=== PATIENT | female | born 1960 | race Caucasian/White ===

== ENCOUNTER → 2017-01-05 | Outpatient (CLI) | payer BC ==
[~2017-01-05] MED LIST: ACIPHEX20 MG PO; ASPIRIN81 M1 PO; ASPRIN/BUTALBIT1 TAB PO; ATIVAN0.5 MG PO; ATIVAN1 MG PO; DIOVAN HCT 12.51 TA6 PO; FLEXERIL10 MG PO; MOTRIN600 MG PO; MOTRIN800 MG PO; PREDNICOT20 MG PO
[2017-01-05 09:23] LABS: BASO % 0.6 % (0.0-1.0); EOS # 0.1 10*3/uL (0.0-0.4); EOS % 2.1 % (1.0-4.0); HEMATOCRIT 41.6 % (37.0-47.0); HEMOGLOBIN 13.8 g/dl (12.0-16.0); LYMPH # 1.8 10*3/uL (1.3-4.4); LYMPH % 28.7 % (27.0-41.0); MEAN CELL VOLUME 93.9 fl (81.0-99.0); MEAN CORPUSCULAR HGB 31.2 pg (27.0-31.0); MEAN CORPUSCULAR HGB CONC 33.2 g/dl (33.0-37.0); MEAN PLATELET VOLUME 10.2 fl (9.6-12.3); MONO # 0.5 10*3/uL (0.1-1.0); MONO % 7.3 % (3.0-9.0); NEUT # 3.8 10*3/uL (2.3-7.9); NEUT % 60.8 % (47.0-73.0); PLATELET COUNT AUTOMATED 215 10*3/uL (130-400); RED BLOOD COUNT 4.43 10*6/uL (4.10-5.10); RED CELL DISTRI WIDTH 12.9 % (0-14.5); WHITE BLOOD COUNT 6.3 10*3/uL (4.8-10.8)
[2017-01-05 09:45] LABS: ALBUMIN 3.8 gm/dl (3.1-4.5); ALKALINE PHOSPHATASE 67 U/L (45-117); BUN 17 mg/dl (7-24); CHLORIDE 105 mmol/L (98-107); CHOLESTEROL 211 mg/dL (<200); CREATININE 0.75 mg/dL (0.55-1.02); HDL CHOLESTEROL 42 mg/dl (40-60); LDL CHOLESTEROL 144 mg/dL (9-159); SGOT/AST 14 IU/L (3-35); SGPT/ALT 21 U/L (12-78); SODIUM 142 mmol/L (136-145); TOTAL PROTEIN 7.8 gm/dL (6.4-8.2); TRIGLYCERIDES 125 mg/dl (<150); VLDL CHOLESTEROL 25 mg/dL (6-40)
[2017-01-05 09:52] LABS: THYROID STIM HORMONE (HS) 0.821 uIU/ml (0.358-4.75)
[2017-01-05 10:39] LABS: VITAMIN D, 25-HYDROXY 30.6 ng/mL (30-100)
== END | disposition home or self-care (01) ==
LOC: LAB 08:51
PROVIDERS: Internal Medicine
DX: I10 Essential (primary) hypertension (principal); K22.70 Barrett's esophagus without dysplasia; E55.9 Vitamin D deficiency, unspecified

== ENCOUNTER → 2017-02-05 | Outpatient (CLI) | payer BC | END | disposition home or self-care (01) | LOC: LAB 03:55 → US 03:55 → CARD 09:30 → US 10:30 | DX: I65.23 Occlusion and stenosis of bilateral carotid arteries (principal); E11.9 Type 2 diabetes mellitus without complications ==

== ENCOUNTER → 2017-05-09 | Outpatient (CLI) | payer BC | END | disposition home or self-care (01) | LOC: MAMMO 05-02 10:20 → RAD 05-02 11:00 → MAMMO 00:22 | DX: Z12.31 Encounter for screening mammogram for malignant neoplasm of breast (principal); E55.9 Vitamin D deficiency, unspecified; Z78.0 Asymptomatic menopausal state ==

== ENCOUNTER → 2017-08-17 | Day surgery (SDC) | payer BC ==
[~2017-08-17] VITALS: Ht 170.1 cm; Wt 99.3 kg
[~2017-08-17] MED LIST changes: +SIMVASTATIN5 MG PO; +VICODIN 5-3001 EACH PO
--- NOTE | ~2017-08-17 | PROC NOTE ---
[place], [place] PROCEDURE NOTE NAME: SCOT SCHROEDER [facility] #: [id number] UNIT #: [id number] ROOM: DOCTOR: CONOR SULTANA MD BIRTHDATE: [birth year] DOS: PROCEDURES: 1. Esophagogastroduodenoscopy and biopsy. 2. Colonoscopy. INDICATIONS: GERD, history of Cheema's esophagus, and rectal bleeding. An informed consent was obtained from the patient after indication of procedures, alternatives, and potential complications were explained to her. PROCEDURE MEDICATIONS: Sedation was administered by Anesthesiology Department. SCOPE USED: For upper endoscopy, Olympus diagnostic adult upper endoscope GIF-180, depth of insertion was to the descending duodenum. For the colonoscopy, the scope used was Olympus pediatric colonoscope variable stiffness GIF-180, depth of insertion was to the cecum, which was identified by the usual landmarks, the appendiceal orifice, ileocecal valve and triangular fold, in addition to transillumination in the right lower quadrant. FINDINGS: After adequate sedation, the patient was placed in left lateral decubitus position. Upper endoscopy was performed first and the scope was introduced under direct visualization through the upper esophageal sphincter into the esophagus. Esophageal mucosa showed irregular Z line borders extending from 34-37 cm from incisors suggestive of short segment Cheema's esophagus. Biopsies were obtained. Stomach was then intubated. Gastric mucosa inspected, no abnormalities were seen. No discrete ulcers or active bleeding. Retroflexed views in the fundus showed a grade 2 hiatal hernia. The pylorus was intubated easily. The duodenal bulb and descending duodenum were within normal range. Scope was then withdrawn after the stomach was decompressed. We then proceeded with colonoscopy. Rectal examination showed diminished sphincter tone and no external hemorrhoids. Scope was introduced into the rectum, then advanced to the cecum with some difficulty due to looping left colon. The prep was adequate. The colon mucosa appeared normal with no evidence of polyps, diverticular ulcerations. Retroflexed views in the rectum showed grade 2 internal hemorrhoids. The scope was then withdrawn after the rectum was decompressed. The patient tolerated the procedures well. IMPRESSION: 1. Small hiatal hernia. 2. Irregular Z line borders suggestive of short segment Cheema's esophagus, biopsies pending. 3. Internal hemorrhoids. 4. Normal colon mucosa, otherwise, no polyp seen. PLAN: There is no need for further GI workup at this time. Repeat screening colonoscopy is advised in 10 years. We will review the histopathology reports and treat the patient accordingly. Office followup will be scheduled in 2-3 weeks. [place], [place] PROCEDURE NOTE NAME: SCOT SCHROEDER UNIT #: [id number] ROOM: DOCTOR: CONOR SULTANA MD BIRTHDATE: [birth year] CONOR SULTANA MD CM:PROCNOTE:PROCEDURE NOTE [id number] FELIBERTO SULTANA MD
[2017-08-17 06:35] VITALS: BP 132/78
[2017-08-17 08:22] VITALS: BP 117/71
[2017-08-17 08:30] VITALS: BP 124/75
[2017-08-17 08:49] VITALS: BP 135/75
== END | disposition home or self-care (01) ==
LOC: SDC 07-24 12:30
DX: K20.8 Other esophagitis (principal); K44.9 Diaphragmatic hernia without obstruction or gangrene; K64.8 Other hemorrhoids; I10 Essential (primary) hypertension; K21.0 Gastro-esophageal reflux disease with esophagitis; E78.5 Hyperlipidemia, unspecified; M85.80 Other specified disorders of bone density and structure, unspecified site; Z98.890 Other specified postprocedural states; Z95.5 Presence of coronary angioplasty implant and graft; Z82.49 Family history of ischemic heart disease and other diseases of the circulatory system; Z82.3 Family history of stroke; Z79.899 Other long term (current) drug therapy; Z90.49 Acquired absence of other specified parts of digestive tract; Z79.82 Long term (current) use of aspirin

== ENCOUNTER → 2018-04-09 | Outpatient (CLI) | payer BC ==
[2018-04-09 10:07] LABS: BASO # 0.1 10*3/uL (0.0-0.1); BASO % 1.2 % (0.0-1.0); EOS # 0.1 10*3/uL (0.0-0.4); EOS % 2.8 % (1.0-4.0); HEMATOCRIT 43.8 % (37.0-47.0); HEMOGLOBIN 14.6 g/dl (12.0-16.0); LYMPH # 1.6 10*3/uL (1.3-4.4); LYMPH % 36.7 % (27.0-41.0); MEAN CELL VOLUME 92.4 fl (81.0-99.0); MEAN CORPUSCULAR HGB 30.8 pg (27.0-31.0); MEAN CORPUSCULAR HGB CONC 33.3 g/dl (33.0-37.0); MEAN PLATELET VOLUME 10.2 fl (9.6-12.3); MONO # 0.4 10*3/uL (0.1-1.0); MONO % 9.3 % (3.0-9.0); NEUT # 2.1 10*3/uL (2.3-7.9); NEUT % 49.8 % (47.0-73.0); PLATELET COUNT AUTOMATED 219 10*3/uL (130-400); RED BLOOD COUNT 4.74 10*6/uL (4.10-5.10); RED CELL DISTRI WIDTH 12.6 % (0-14.5); WHITE BLOOD COUNT 4.3 10*3/uL (4.8-10.8)
[2018-04-09 10:45] LABS: BUN 17 mg/dl (7-24); CHLORIDE 105 mmol/L (98-107); CHOLESTEROL 183 mg/dL (<200); CREATININE 0.76 mg/dL (0.55-1.02); POTASSIUM 3.9 mmol/L (3.5-5.1); SGOT/AST 20 IU/L (3-35); SGPT/ALT 27 U/L (12-78); SODIUM 142 mmol/L (136-145); TRIGLYCERIDES 125 mg/dl (<150); VLDL CHOLESTEROL 25 mg/dL (6-40)
[2018-04-09 10:54] LABS: ALKALINE PHOSPHATASE 70 U/L (45-117); CPK 140 U/L (26-192); FREE T4 1.07 ng/dl (0.76-1.46); HDL CHOLESTEROL 37 mg/dl (40-60); LDL CHOLESTEROL 121 mg/dL (9-159); TOTAL PROTEIN 7.8 gm/dL (6.4-8.2)
[2018-04-09 11:33] LABS: VITAMIN D, 25-HYDROXY 22.8 ng/mL (30-100)
== END | disposition home or self-care (01) ==
LOC: LAB 09:54
PROVIDERS: Internal Medicine
DX: E55.9 Vitamin D deficiency, unspecified (principal); D51.0 Vitamin B12 deficiency anemia due to intrinsic factor deficiency; E03.9 Hypothyroidism, unspecified; E78.2 Mixed hyperlipidemia

== ENCOUNTER → 2018-04-26 | Outpatient (CLI) | payer BC ==
[~2018-04-26] MED LIST changes: +Hydralazine Hyd25 MG PO; +LOPRESSOR50 M1 PO
== END | disposition home or self-care (01) ==
LOC: LAB 00:18
DX: R73.9 Hyperglycemia, unspecified (principal)

== ENCOUNTER → 2018-07-19 | Outpatient (CLI) | payer BC ==
--- NOTE | ~2018-07-19 | ST ---
[place], [place] EXERCISE STRESS TEST REPORT NAME: SCOT SCHROEDER [facility] #: [id number] UNIT #: [id number] ROOM: DOCTOR: AUDREY CASAREZ MD BIRTHDATE: [birth year] DOS: 07/19/2018 EXERCISE STRESS TEST REASON FOR TESTING: Atypical/non-anginal chest pain. Baseline EKG, normal sinus rhythm, septal LA, age undetermined, abnormal EKG. After informed consent was obtained, the patient's stress test was performed using Rafal protocol. EKG portion of the test was normal. No significant arrhythmias were noted. No chest pain was noted. Normal heart rate response to exercise and recovery. Above average functional capacity. Low risk exercise stress test. Hill treadmill score was 9. No prior stress test available for comparison. Audrey Casarez MD CM:STRESS:EXERCISE STRESS TEST REPORT [id number] AUDREY CASAREZ MD
--- NOTE | 2018-07-19 09:30 | NUR ---
INFORMED SIGNED CONSENT OBTAINED FOR STANDARD GXT WITH DR LITTLE. RESTING EKG NSR HR 71 BP 132/76 IN SUPINE POSITION, STANDING HR 82 BP 140/84. Q WAVE -V2. PT COMPLETED 9:00 OF A SHAHEEN PROTOCOL WITH PT COMPLETING STAGE III AT 3.54 MPH AND A 14% GRADE. PT REACHED A PEAK HR OF 173 WHICH REPRESENTS 107% OF PREDICTED MAXIMUM AND A PEAK BP OF 166/80. TEST TERMINATED DUE TO FATIGUE NO ARRHYTHMIAS OR ST CHANGES SEEN. LAST RECOVERY HR OF 112 BP 128/80. PT IN STABLE CONDITION, HOME TO SELF.
== END | disposition home or self-care (01) ==
LOC: CARD 00:28
DX: R07.9 Chest pain, unspecified (principal)

== ENCOUNTER → 2018-07-30 | Outpatient (CLI) | payer BC | END | disposition home or self-care (01) | LOC: MAMMO 08:57 | DX: Z12.31 Encounter for screening mammogram for malignant neoplasm of breast (principal) ==

== ENCOUNTER → 2018-08-01 | Outpatient (CLI) | payer BC | END | disposition home or self-care (01) | LOC: US 12:55 | DX: R42 Dizziness and giddiness (principal); I10 Essential (primary) hypertension ==

== ENCOUNTER → 2018-08-08 | Outpatient (CLI) | payer BC ==
--- NOTE | ~2018-08-08 | ST ---
[place], [place] EXERCISE STRESS TEST REPORT NAME: SCOT SCHROEDER [facility] #: [id number] UNIT #: [id number] ROOM: DOCTOR: AUDREY CASAREZ MD BIRTHDATE: [birth year] DOS: 08/08/2018 EXERCISE CARDIOLITE STRESS TEST REASON FOR TESTING: Atypical chest pain/non-anginal chest pain. Baseline EKG showed normal sinus rhythm with septal RI, age undetermined, abnormal EKG. PROCEDURE: After informed consent was obtained, the patient's stress test was performed using Rafal protocol. EKG portion of the test was normal. No significant arrhythmias were noted. No chest pain noted. There was an appropriate heart rate and blood pressure response to exercise and recovery. Average functional capacity. Low risk exercise stress test. No significant arrhythmias were noted. Hill treadmill score was 8. Isotope was injected 1 minute prior to the completion of exercise. Please see the separate imaging report for further details of the stress test results. Audrey Casarez MD CM:STRESS:EXERCISE STRESS TEST REPORT [id number] AUDREY CASAREZ MD
--- NOTE | 2018-08-08 06:48 | NUR ---
INFORMED CONSENT OBTAINED FOR EXERCISE CARDIOLIE STRESS TEST WITH DR. CASAREZ. RESTING EKG NSR FIRST DEGREE HEART BLOCK WITH A SUPINE BP OF 130/90 AND HT RT OF 71. STANDING HT RT OF 80, WITH A BP OF 134/82. PT COMPLETED 8:00 MINUTES OF A SHAHEEN PROTOCOL WITH COMPLETION OF 2 MINUTES INTO STAGE III AT 3.4 MPH AND 14% GRADE. REACHED A PEAK HT RT OF 155 WHICH IS 96% OF PREDICTED MAX WITH A PEAK BP OF 180/66. TEST TERMINATED DUE TO PHYSICIAN DISCRETION. DENIES CHEST PAIN. HAS A GOOD EXERXISE TOLERANCE. LAST RECOVERY HT RT OF 105 WIT A BP OF 130/62. TAKEN TO NUCLEAR IMAGING IN STABLE CONDITOIN.
== END | disposition home or self-care (01) ==
LOC: CARD 01:49
DX: R07.89 Other chest pain (principal)

== ENCOUNTER → 2020-01-21 | Outpatient (CLI) | payer BC ==
[~2020-01-21] MED LIST changes: +BENTYL PO; +HYDROCHLOROTHIA25 M1 PO; +Oscal,Oyster S500 MG PO; +PROBIOTIC1 EAC4 PO
== END | disposition home or self-care (01) ==
LOC: MAMMO 01:24
PROVIDERS: ATTEND Obstetrics & Gynecology
DX: Z12.31 Encounter for screening mammogram for malignant neoplasm of breast (principal)

== ENCOUNTER → 2020-02-09 | Outpatient (CLI) | payer BC | END | disposition home or self-care (01) | LOC: COVID19 00:16 | PROVIDERS: ATTEND Surgery | DX: Z01.812 Encounter for preprocedural laboratory examination (principal); Z20.828 Contact with and (suspected) exposure to other viral communicable diseases ==

== ENCOUNTER → 2020-02-12 | Day surgery (SDC) | payer BC ==
[~2020-02-12] VITALS: Ht 170.1 cm; Wt 103.9 kg
[2020-02-12 07:48] VITALS: BP 135/81
[2020-02-12 08:43] VITALS: BP 124/73
[2020-02-12 08:55] VITALS: BP 124/77
[2020-02-12 09:13] VITALS: BP 133/80
== END ==
LOC: SDC 02-09 10:15
PROVIDERS: ATTEND Surgery
DX: R19.4 Change in bowel habit (principal); K29.50 Unspecified chronic gastritis without bleeding; K22.70 Barrett's esophagus without dysplasia; K21.00 Gastro-esophageal reflux disease with esophagitis, without bleeding; I10 Essential (primary) hypertension; Z90.49 Acquired absence of other specified parts of digestive tract; Z98.890 Other specified postprocedural states

== ENCOUNTER → 2020-04-30 | Outpatient (CLI) | payer BC | END | disposition home or self-care (01) | LOC: RESCLI 11:16 | PROVIDERS: ATTEND Family Medicine | DX: B35.1 Tinea unguium (principal); I10 Essential (primary) hypertension; E78.5 Hyperlipidemia, unspecified; K21.9 Gastro-esophageal reflux disease without esophagitis; Z79.899 Other long term (current) drug therapy ==

== ENCOUNTER → 2020-05-16 | Outpatient (CLI) | payer BC ==
[2020-05-16 08:06] LABS: BASO # 0.1 10*3/uL (0.0-0.1); EOS # 0.2 10*3/uL (0.0-0.4); EOS % 2.3 % (1.0-4.0); HEMATOCRIT 43.5 % (37.0-47.0); LYMPH # 1.9 10*3/uL (1.3-4.4); LYMPH % 27.3 % (27.0-41.0); MEAN CELL VOLUME 92.8 fl (81.0-99.0); MEAN CORPUSCULAR HGB 29.9 pg (27.0-31.0); MEAN CORPUSCULAR HGB CONC 32.2 g/dl (33.0-37.0); MEAN PLATELET VOLUME 10.4 fl (9.6-12.3); MONO # 0.6 10*3/uL (0.1-1.0); MONO % 7.9 % (3.0-9.0); NEUT # 4.3 10*3/uL (2.3-7.9); NEUT % 61.1 % (47.0-73.0); PLATELET COUNT AUTOMATED 251 10*3/uL (130-400); RED BLOOD COUNT 4.69 10*6/uL (4.10-5.10); RED CELL DISTRI WIDTH 13.5 % (0-14.5); WHITE BLOOD COUNT 7.1 10*3/uL (4.8-10.8)
[2020-05-16 08:37] LABS: ALBUMIN 3.8 gm/dl (3.1-4.5); ALKALINE PHOSPHATASE 71 U/L (45-117); BUN 19 mg/dl (7-24); CHLORIDE 104 mmol/L (98-107); CHOLESTEROL 198 mg/dL (<200); CREATININE 0.73 mg/dL (0.55-1.02); FREE T4 0.95 ng/dl (0.76-1.46); HDL CHOLESTEROL 46 mg/dl (40-60); LDL CHOLESTEROL 116 mg/dL (9-159); POTASSIUM 3.6 mmol/L (3.5-5.1); SGOT/AST 16 IU/L (3-35); SGPT/ALT 26 U/L (12-78); SODIUM 141 mmol/L (136-145); TOTAL PROTEIN 8.1 gm/dL (6.4-8.2); TRIGLYCERIDES 180 mg/dl (<150); VLDL CHOLESTEROL 36 mg/dL (6-40)
[2020-05-16 09:11] LABS: VITAMIN D, 25-HYDROXY 18.4 ng/mL (30-100)
== END | disposition home or self-care (01) ==
LOC: LAB 07:29
PROVIDERS: ATTEND Internal Medicine
DX: I11.0 Hypertensive heart disease with heart failure (principal); I50.9 Heart failure, unspecified; E78.2 Mixed hyperlipidemia; D52.9 Folate deficiency anemia, unspecified; C00-D49 Neoplasms; R53.81 Other malaise; E55.9 Vitamin D deficiency, unspecified; E78.5 Hyperlipidemia, unspecified; K22.70 Barrett's esophagus without dysplasia

== ENCOUNTER → 2022-01-19 | Outpatient (CLI) | payer OTHER | END | disposition home or self-care (01) | LOC: RAD 11:04 | PROVIDERS: ATTEND Internal Medicine | DX: M25.512 Pain in left shoulder (principal); R06.02 Shortness of breath ==

== ENCOUNTER → 2022-02-01 | Outpatient (CLI) | payer OTHER ==
[2022-02-01 10:33] LABS: BASO # 0.1 10*3/uL (0.0-0.1); BASO % 0.8 % (0.0-1.0); EOS # 0.2 10*3/uL (0.0-0.4); EOS % 3.2 % (1.0-4.0); HEMATOCRIT 45.1 % (37.0-47.0); LYMPH # 1.5 10*3/uL (1.3-4.4); MEAN CELL VOLUME 93.4 fl (81.0-99.0); MEAN CORPUSCULAR HGB 31.3 pg (27.0-31.0); MEAN CORPUSCULAR HGB CONC 33.5 g/dl (33.0-37.0); MEAN PLATELET VOLUME 10.4 fl (9.6-12.3); MONO # 0.5 10*3/uL (0.1-1.0); MONO % 9.2 % (3.0-9.0); NEUT # 3.6 10*3/uL (2.3-7.9); NEUT % 60.3 % (47.0-73.0); PLATELET COUNT AUTOMATED 238 10*3/uL (130-400); RED BLOOD COUNT 4.83 10*6/uL (4.10-5.10); RED CELL DISTRI WIDTH 13.1 % (0-14.5); WHITE BLOOD COUNT 5.9 10*3/uL (4.8-10.8)
[2022-02-01 10:50] LABS: BUN 24 mg/dl (7-24); CHLORIDE 104 mmol/L (98-107); CHOLESTEROL 198 mg/dL (<200); CREATININE 0.75 mg/dL (0.55-1.02); POTASSIUM 3.6 mmol/L (3.5-5.1); SGOT/AST 16 IU/L (3-35); SGPT/ALT 27 U/L (12-78); SODIUM 137 mmol/L (136-145); TRIGLYCERIDES 107 mg/dl (<150)
[2022-02-01 10:54] LABS: ALKALINE PHOSPHATASE 72 U/L (45-117); FREE T4 0.99 ng/dl (0.76-1.46); LDL CHOLESTEROL 132 mg/dL (9-159); THYROID STIM HORMONE (HS) 0.939 uIU/ml (0.358-4.75)
[2022-02-01 11:12] LABS: VITAMIN D, 25-HYDROXY 33.9 ng/mL (30-100)
[2022-02-02 05:06] LABS: RHEUMATOID FACTOR <10.0 IU/mL (<14.0)
[2022-02-02 12:06] LABS: ANTI-DSDNA ANTIBODIES 1 IU/mL (0-9)
[2022-02-03 00:05] LABS: CCP ANTIBODIES IGG/IGA 6 units (0-19)
== END | disposition home or self-care (01) ==
LOC: CARD 01-30 08:30 → LAB 01:03 → CARD 07:30
PROVIDERS: ATTEND Internal Medicine
DX: Z12.31 Encounter for screening mammogram for malignant neoplasm of breast (principal); I11.9 Hypertensive heart disease without heart failure; R70.0 Elevated erythrocyte sedimentation rate; M05.59 Rheumatoid polyneuropathy with rheumatoid arthritis of multiple sites; R79.82 Elevated C-reactive protein (CRP); M06.9 Rheumatoid arthritis, unspecified; Z13.89 Encounter for screening for other disorder; Z13.0 Encounter for screening for diseases of the blood and blood-forming organs and certain disorders involving the immune mechanism; Z13.1 Encounter for screening for diabetes mellitus; Z13.21 Encounter for screening for nutritional disorder; Z13.220 Encounter for screening for lipoid disorders; Z13.228 Encounter for screening for other metabolic disorders; Z13.29 Encounter for screening for other suspected endocrine disorder; Z13.6 Encounter for screening for cardiovascular disorders; Z13.9 Encounter for screening, unspecified

== ENCOUNTER → 2022-02-10 | Outpatient (CLI) | payer OTHER | LOC: LAB 08:44 | PROVIDERS: ATTEND Internal Medicine | DX: R73.09 Other abnormal glucose (principal) ==

== ENCOUNTER → 2022-03-08 | Outpatient (CLI) | payer OTHER | END | disposition home or self-care (01) | LOC: LAB 13:17 | PROVIDERS: ATTEND Internal Medicine | DX: J02.9 Acute pharyngitis, unspecified (principal) ==

== ENCOUNTER → 2022-04-24 | Outpatient (CLI) | payer OTHER | END | disposition home or self-care (01) | LOC: RAD 13:04 | PROVIDERS: ATTEND Internal Medicine | DX: M85.851 Other specified disorders of bone density and structure, right thigh (principal); Z78.0 Asymptomatic menopausal state ==

== ENCOUNTER → 2023-01-15 | Outpatient (CLI) | payer OTHER ==
[2023-01-15 09:25] LABS: BASO # 0.1 10*3/uL (0.0-0.1); BASO % 1.1 % (0.0-1.0); EOS # 0.1 10*3/uL (0.0-0.4); EOS % 2.1 % (1.0-4.0); HEMATOCRIT 45.5 % (37.0-47.0); LYMPH % 30.5 % (27.0-41.0); MEAN CORPUSCULAR HGB 31.6 pg (27.0-31.0); MEAN CORPUSCULAR HGB CONC 33.6 g/dl (33.0-37.0); MEAN PLATELET VOLUME 10.2 fl (9.6-12.3); MONO # 0.6 10*3/uL (0.1-1.0); MONO % 9.3 % (3.0-9.0); NEUT # 3.7 10*3/uL (2.3-7.9); NEUT % 56.7 % (47.0-73.0); PLATELET COUNT AUTOMATED 245 10*3/uL (130-400); RED BLOOD COUNT 4.84 10*6/uL (4.10-5.10); WHITE BLOOD COUNT 6.6 10*3/uL (4.8-10.8)
[2023-01-15 10:35] LABS: ALKALINE PHOSPHATASE 66 U/L (46-116); BUN 14 mg/dl (9-23); CHLORIDE 101 mmol/L (98-107); CHOLESTEROL 202 mg/dL (<200); FREE T4 0.99 ng/dl (0.89-1.76); LDL CHOLESTEROL 125 mg/dL (9-159); POTASSIUM 3.9 mmol/L (3.4-5.1); SGPT/ALT 21 U/L (5-49); TOTAL PROTEIN 7.5 gm/dL (6.0-8.0); TRIGLYCERIDES 201 mg/dl (<150)
== END | disposition home or self-care (01) ==
LOC: LAB 09:06
PROVIDERS: ATTEND Internal Medicine
DX: Z13.0 Encounter for screening for diseases of the blood and blood-forming organs and certain disorders involving the immune mechanism (principal); Z13.1 Encounter for screening for diabetes mellitus; Z13.21 Encounter for screening for nutritional disorder; Z13.220 Encounter for screening for lipoid disorders; Z13.228 Encounter for screening for other metabolic disorders; Z13.29 Encounter for screening for other suspected endocrine disorder; Z13.6 Encounter for screening for cardiovascular disorders; Z13.89 Encounter for screening for other disorder; Z13.9 Encounter for screening, unspecified; F41.1 Generalized anxiety disorder; I10 Essential (primary) hypertension; E78.2 Mixed hyperlipidemia; R73.9 Hyperglycemia, unspecified

== ENCOUNTER → 2023-03-30 | Outpatient (CLI) | payer OTHER | END | disposition home or self-care (01) | LOC: RAD 13:00 | PROVIDERS: ATTEND Internal Medicine | DX: R05.3 Chronic cough (principal); M47.814 Spondylosis without myelopathy or radiculopathy, thoracic region ==

== ENCOUNTER 2023-04-05 12:37 | Emergency (ER) | payer OTHER ==
[2023-04-05 12:49] VITALS: BP 153/81
[2023-04-05] MEDS ORDERED: ZITHROMAX250 MG PO (13:25)
[2023-04-05] MEDS ORDERED: PREDNISONE50 MG PO (13:25)
[2023-04-05] MEDS ORDERED: ONDANSETRON4 MG SL (13:26)
== END 2023-04-05 13:36 | disposition home or self-care (01) ==
LOC: ED 12:37
DX: R42 Dizziness and giddiness (principal); R11.0 Nausea; I10 Essential (primary) hypertension; K21.9 Gastro-esophageal reflux disease without esophagitis; Z95.5 Presence of coronary angioplasty implant and graft; Z98.890 Other specified postprocedural states; Z90.49 Acquired absence of other specified parts of digestive tract

== ENCOUNTER → 2023-04-10 | Outpatient (CLI) | payer OTHER ==
[~2023-04-10] MED LIST changes: +ONDANSETRON4 MG SL; +PREDNISONE50 MG PO; +ZITHROMAX250 MG PO
== END | disposition home or self-care (01) ==
LOC: MAMMO 05:09
PROVIDERS: ATTEND Internal Medicine
DX: Z12.31 Encounter for screening mammogram for malignant neoplasm of breast (principal)

== ENCOUNTER → 2023-04-13 | Outpatient (CLI) | payer OTHER | END | disposition home or self-care (01) | LOC: MRI 02:53 | PROVIDERS: ATTEND Internal Medicine | DX: R42 Dizziness and giddiness (principal); R51.9 Headache, unspecified; I10 Essential (primary) hypertension ==

== ENCOUNTER → 2023-04-19 | Outpatient (CLI) | payer OTHER | END | disposition home or self-care (01) | LOC: CT 04-18 10:00 | PROVIDERS: ATTEND Internal Medicine | DX: R26.2 Difficulty in walking, not elsewhere classified (principal); J32.0 Chronic maxillary sinusitis ==

== ENCOUNTER → 2023-07-27 | Outpatient (CLI) | payer OTHER ==
[~2023-07-27] MED LIST changes: +IOHEXOL 300 MG/ML 100 ML VIAL IV ONE; +IOHEXOL 300 MG/ML 100 ML VIAL ONE
== END ==
LOC: CT 02:14
PROVIDERS: ATTEND Internal Medicine
DX: R07.9 Chest pain, unspecified (principal); R05.3 Chronic cough; K44.9 Diaphragmatic hernia without obstruction or gangrene; K76.0 Fatty (change of) liver, not elsewhere classified; Z90.49 Acquired absence of other specified parts of digestive tract

== ENCOUNTER → 2024-04-05 | Outpatient (CLI) | payer OTHER ==
[~2024-04-05] MED LIST changes: -IOHEXOL 300 MG/ML 100 ML VIAL IV ONE; -IOHEXOL 300 MG/ML 100 ML VIAL ONE
[2024-04-05 08:56] LABS: BASO # 0.1 10*3/uL (0.0-0.1); BASO % 0.9 % (0.0-1.0); EOS # 0.2 10*3/uL (0.0-0.4); EOS % 2.9 % (1.0-4.0); HEMATOCRIT 44.6 % (37.0-47.0); MEAN CELL VOLUME 94.7 fl (81.0-99.0); MEAN CORPUSCULAR HGB 30.8 pg (27.0-31.0); MEAN CORPUSCULAR HGB CONC 32.5 g/dl (33.0-37.0); MEAN PLATELET VOLUME 10.3 fl (9.6-12.3); MONO # 0.5 10*3/uL (0.1-1.0); NEUT # 3.3 10*3/uL (2.3-7.9); NEUT % 56.8 % (47.0-73.0); PLATELET COUNT AUTOMATED 206 10*3/uL (130-400); RED BLOOD COUNT 4.71 10*6/uL (4.10-5.10); RED CELL DISTRI WIDTH 12.6 % (0-14.5); WHITE BLOOD COUNT 5.9 10*3/uL (4.8-10.8)
[2024-04-05 09:32] LABS: ALKALINE PHOSPHATASE 61 U/L (46-116); BUN 21 mg/dl (9-23); CHLORIDE 102 mmol/L (98-107); CHOLESTEROL 181 mg/dL (<200); FREE T4 1.11 ng/dl (0.89-1.76); LDL CHOLESTEROL 111 mg/dL (9-159); POTASSIUM 3.8 mmol/L (3.4-5.1); SGPT/ALT 17 U/L (5-49); TOTAL PROTEIN 7.4 gm/dL (6.0-8.0); TRIGLYCERIDES 142 mg/dl (<150)
[2024-04-05 09:46] LABS: VITAMIN D, 25-HYDROXY 38.6 ng/mL (30-100)
== END | disposition home or self-care (01) ==
LOC: LAB 02:44
PROVIDERS: ATTEND Internal Medicine
DX: Z13.1 Encounter for screening for diabetes mellitus (principal); Z13.0 Encounter for screening for diseases of the blood and blood-forming organs and certain disorders involving the immune mechanism; Z13.21 Encounter for screening for nutritional disorder; Z13.220 Encounter for screening for lipoid disorders; Z13.228 Encounter for screening for other metabolic disorders; Z13.29 Encounter for screening for other suspected endocrine disorder; Z13.6 Encounter for screening for cardiovascular disorders; Z13.89 Encounter for screening for other disorder

== ENCOUNTER → 2024-05-12 | Outpatient (CLI) | payer OTHER | END | disposition home or self-care (01) | LOC: MAMMO 02:17 | PROVIDERS: ATTEND Internal Medicine | DX: Z12.31 Encounter for screening mammogram for malignant neoplasm of breast (principal); R92.313 Mammographic fatty tissue density, bilateral breasts ==

== ENCOUNTER → 2024-05-15 | Outpatient (CLI) | payer OTHER | END | disposition home or self-care (01) | LOC: RAD 07:19 | PROVIDERS: ATTEND Internal Medicine | DX: Z78.0 Asymptomatic menopausal state (principal) ==

== ENCOUNTER → 2025-02-04 | Outpatient (CLI) | payer OTHER ==
[2025-02-04 07:59] LABS: BASO # 0.1 10*3/uL (0.0-0.1); BASO % 0.7 % (0.0-1.0); EOS # 0.2 10*3/uL (0.0-0.4); EOS % 2.5 % (1.0-4.0); MEAN CELL VOLUME 96.0 fl (81.0-99.0); MEAN CORPUSCULAR HGB 30.9 pg (27.0-31.0); MEAN PLATELET VOLUME 10.3 fl (9.6-12.3); MONO # 0.6 10*3/uL (0.1-1.0); MONO % 8.4 % (3.0-9.0); NEUT # 4.3 10*3/uL (2.3-7.9); NEUT % 62.9 % (47.0-73.0); NUCLEATED RED BLOOD CELL 0.0 % (0.0-0.0); NUCLEATED RED BLOOD CELL 0.0 10*3/uL (0.0-0.0); PLATELET COUNT AUTOMATED 218 10*3/uL (130-400); RED CELL DISTRI WIDTH 12.9 % (0-14.5)
[2025-02-04 08:27] LABS: BUN 25 mg/dl (9-23); FREE T4 1.19 ng/dl (0.89-1.76); LDL CHOLESTEROL 117 mg/dL (9-159); SGPT/ALT 19 U/L (5-49)
[2025-02-04 11:20] LABS: VITAMIN D, 25-HYDROXY 43.1 ng/mL (30-100)
== END | disposition home or self-care (01) ==
LOC: LAB 07:45
PROVIDERS: ATTEND Internal Medicine
DX: I10 Essential (primary) hypertension (principal); R73.03 Prediabetes; R73.9 Hyperglycemia, unspecified; E78.2 Mixed hyperlipidemia; R53.83 Other fatigue; E53.9 Vitamin B deficiency, unspecified; E55.9 Vitamin D deficiency, unspecified; Z13.0 Encounter for screening for diseases of the blood and blood-forming organs and certain disorders involving the immune mechanism; Z13.1 Encounter for screening for diabetes mellitus; Z13.21 Encounter for screening for nutritional disorder; Z13.220 Encounter for screening for lipoid disorders; Z13.228 Encounter for screening for other metabolic disorders; Z13.29 Encounter for screening for other suspected endocrine disorder; Z13.6 Encounter for screening for cardiovascular disorders; Z13.89 Encounter for screening for other disorder; Z13.9 Encounter for screening, unspecified